=== PATIENT | male | born 1955 | race Asian ===

== ENCOUNTER 2019-01-21 01:51 | Emergency (ER) | payer BC ==
[~2019-01-21] VITALS: Ht 167.6 cm; Wt 70.3 kg
[2019-01-21] MEDS ORDERED: ROCURONIUM BROMIDE 10 MG/ML 5 ML VIAL IV ONE (01:53)
[2019-01-21] MEDS ORDERED: ETOMIDATE 2 MG/ML 10 ML VIAL IV ONE (01:53)
[2019-01-21] MEDS ORDERED: PROPOFOL 1000 MG/ISO-OSM 100 ML IV PRN (02:15)
[2019-01-21] MEDS ORDERED: MIRT7.5T11 PO (02:23)
[2019-01-21] MEDS ORDERED: METH20CP PO (02:23)
[2019-01-21] MEDS ORDERED: DOCU100C33 PO (02:23)
[2019-01-21] MEDS ORDERED: COMBISP IH (02:24)
[2019-01-21 02:27] LABS: BASOPHILS % (AUTO) 1.2 % (0.0-2.0); EOSINOPHILS % (AUTO) 1.9 % (1.0-6.0); HEMATOCRIT 44.1 % (41-53); LYMPHOCYTES # (AUTO) 6.5 K/uL (1.0-4.8); MEAN CORPUSCULAR HEMOGLOBIN 27.4 pg (26.0-34.0); MEAN CORPUSCULAR HGB CONC 31.8 G/dL (31.0-37.0); MEAN CORPUSCULAR VOLUME 86 fL (80-100); MONOCYTES # (AUTO) 1.3 K/uL (0.1-1.0); NEUTROPHILS # (AUTO) 5.7 K/uL (1.8-7.7); NEUTROPHILS % (AUTO) 40.9 % (40.0-70.0); PLATELET COUNT (AUTO) 179 K/uL (150-450); RED BLOOD CELL COUNT(AUTO) 5.13 MIL/uL (4.50-5.90); RED CELL DISTRIBUTION WIDTH 15.6 % (11.5-14.5)
[2019-01-21 02:36] LABS: ANION GAP 6 mmol/L (8-16); CALCIUM, TOTAL 9.4 mg/dL (8.8-10.5); CARBON DIOXIDE 29 mmol/L (22-29); CHLORIDE 100 mmol/L (98-107); CREATININE 0.83 mg/dL (0.60-1.30); GLOMERULAR FILTR. RATE CALC > 60 mL/min (>60); GLUCOSE,RANDOM 191 mg/dL (70-110); POTASSIUM 3.7 mmol/L (3.5-5.1); SODIUM SERUM 135 mmol/L (136-145); UREA NITROGEN, BLOOD 20 mg/dL (7-18)
[2019-01-21 02:39] LABS: INR 1.1 (0.9-1.1); PROTHROMBIN TIME 11.6 SEC (9.4-11.6)
[2019-01-21 02:43] LABS: ALANINE AMINOTRANSFERASE 29 U/L (12-78); ALKALINE PHOSPHATASE 392 U/L (46-116); ASPARTATE AMINOTRANSFERASE 70 U/L (15-37); CREATINE KINASE, TOTAL ONLY 57 U/L (39-308); TOTAL PROTEIN, SERUM 8.3 g/dL (6.4-8.2)
[2019-01-21 02:48] LABS: B-TYPE NATRIURETIC PEPTIDE 41 pg/mL (0-100)
[2019-01-21 02:49] LABS: ABG A-A DIFF O2 558.2 mmHg (10-20.0); ABG BASE EXCESS -0.2 mmol/L (-2.0-3.0); ABG CARBOXYHEMOGLOBIN 1.3 % (0.0-1.5); ABG HCO3 22.9 mmol/L (22.0-26.0); ABG METHEMOGLOBIN 0.4 % (0.0-1.5); ABG OXYGEN CONTENT 18.3 mL/dL (15.0-23.0); ABG OXYGEN SATURATION 95.6 % (95.0-98.0); ABG PH 7.227 (7.35-7.450); ABG TOTAL HEMOGLOBIN 13.8 G/dL (12.0-18.0); PO2, ARTERIAL BG 89.5 mmHg (79.0-87.0); SOURCE, BLOOD GAS ARTERIAL; TEMPERATURE, FAHRENHEIT, BG 97.4 FAHREN (96.0-98.6)
[2019-01-21 02:50] LABS: ABG PCO2 67 mmHg (35-45); O2 DEVICE,BLOOD GAS VENTILATOR (ROOM AIR); PEEP,BG 5 cm H2O; SITE, BLOOD GAS RT RADIAL; VT, ABG 500 ml
[2019-01-21 03:02] LABS: LACTIC ACID 2.2 mmol/L (0.4-2.0)
[2019-01-21] MEDS ORDERED: SODIUM CHLORIDE 0.9% 1,000 ML IV ONE (04:15)
[2019-01-21] MEDS ORDERED: SODIUM CHLORIDE 0.9% 2,100 ML IV ONE (04:15)
[2019-01-21 04:27] LABS: ABG A-A DIFF O2 523.1 mmHg (10-20.0); ABG BASE EXCESS 1.1 mmol/L (-2.0-3.0); ABG CARBOXYHEMOGLOBIN 1.2 % (0.0-1.5); ABG HCO3 23.7 mmol/L (22.0-26.0); ABG METHEMOGLOBIN 0.5 % (0.0-1.5); ABG OXYGEN CONTENT 19.2 mL/dL (15.0-23.0); ABG OXYGEN SATURATION 97.7 % (95.0-98.0); ABG TOTAL HEMOGLOBIN 14.1 G/dL (12.0-18.0); PO2, ARTERIAL BG 114.2 mmHg (79.0-87.0); SOURCE, BLOOD GAS ARTERIAL; TEMPERATURE, FAHRENHEIT, BG 98.5 FAHREN (96.0-98.6)
[2019-01-21 04:28] LABS: ABG PCO2 76 mmHg (35-45); ABG PH 7.201 (7.35-7.450); O2 DEVICE,BLOOD GAS VENTILATOR (ROOM AIR); PEEP,BG 5 cm H2O; SITE, BLOOD GAS RT RADIAL; VT, ABG 500 ml
[2019-01-21] MEDS ORDERED: MethylPREDNISolone SOD SUCC 125 MG/2 ML VIAL IVP ONE (05:00)
[2019-01-21] MEDS ORDERED: CefTRIAXone 1 GM/DEXTROSE 50 ML IV ONE (05:00)
[2019-01-21] MEDS ORDERED: AZITHROMYCIN 500 MG/NS 250 ML IV ONE (05:00)
[2019-01-21 06:17] LABS: ABG BASE EXCESS -3.1 mmol/L (-2.0-3.0); ABG CARBOXYHEMOGLOBIN 0.9 % (0.0-1.5); ABG HCO3 21.5 mmol/L (22.0-26.0); ABG METHEMOGLOBIN 0.5 % (0.0-1.5); ABG OXYGEN CONTENT 17.1 mL/dL (15.0-23.0); ABG OXYGEN SATURATION 99.3 % (95.0-98.0); ABG OXYHEMOGLOBIN 97.9 % (94.0-100.0); ABG PCO2 53 mmHg (35-45); ABG PH 7.269 (7.35-7.450); O2 DEVICE,BLOOD GAS VENTILATOR (ROOM AIR); PEEP,BG 5 cm H2O; PO2, ARTERIAL BG 242.4 mmHg (79.0-87.0); SITE, BLOOD GAS RT RADIAL; SOURCE, BLOOD GAS ARTERIAL; SPONTANEOUS VT, BG 551 ml; TEMPERATURE, FAHRENHEIT, BG 98.2 FAHREN (96.0-98.6); VT, ABG 550 ml
[2019-01-21 06:34] VITALS: BP 93/60
== END 2019-01-21 07:11 | disposition short-term general hospital (02) ==
LOC: EMS 01:52
DX: A41.9 Sepsis, unspecified organism (principal); J96.01 Acute respiratory failure with hypoxia; E87.2 Acidosis; R04.2 Hemoptysis; D72.829 Elevated white blood cell count, unspecified; J44.9 Chronic obstructive pulmonary disease, unspecified
CPT/HCPCS: 31500; 36415; 36600; 71045; 80053; 82550; 82805; 83605; 83880; 84484; 85025; 85610; 85730; 87040; 93005; 96365; 96368; 99291; 99292; J0456; J0696; J2704; J2930; J3490 ×2; J7030; 94002

== ENCOUNTER 2019-03-26 03:51 | Emergency (ER) | payer BC, MEDICAID ==
[~2019-03-26] VITALS: Ht 175.3 cm; Wt 64.1 kg
[~2019-03-26 03:51] MED LIST: COMBISP IH; DOCU100C33 PO; METH20CP PO; MIRT7.5T11 PO
[2019-03-26] MEDS ORDERED: ACET500C4 PO (04:05)
[2019-03-26] MEDS ORDERED: LORA0.5T83 PO (04:05)
[2019-03-26] MEDS ORDERED: [UNRECOGNIZED DRUG - CODE] PO (04:05)
[2019-03-26] MEDS ORDERED: TRAZ-184 PO (04:05)
[2019-03-26] MEDS ORDERED: PROC5TAB12 PO (04:05)
[2019-03-26] MEDS ORDERED: HYOS-28 PO (04:05)
[2019-03-26] MEDS ORDERED: HALO0.5T PO (04:05)
[2019-03-26] MEDS ORDERED: SODIUM CHLORIDE 0.9% 1,900 ML IV ONE (04:15)
[2019-03-26] MEDS ORDERED: AZITHROMYCIN 500 MG/NS 250 ML IV ONE (04:15)
[2019-03-26] MEDS ORDERED: VANCOMYCIN HCL 1 GM/D5% WATER 200 ML IV ONE (04:15)
[2019-03-26] MEDS ORDERED: 0.9% SODIUM CHLORIDE 10 ML SYRINGE IVP PRN (04:15)
[2019-03-26] MEDS ORDERED: PIPERACILLIN/TAZO 3.375 GM/D5W 50 ML IV ONE (04:15)
[2019-03-26 04:30] LABS: BASOPHILS % (AUTO) 0.6 % (0.0-2.0); EOSINOPHILS % (AUTO) 0 % (1.0-6.0); HEMATOCRIT 39.8 % (41-53); HEMOGLOBIN 13.2 g/dL (13.5-17.5); LYMPHOCYTES # (AUTO) 0.7 K/uL (1.0-4.8); LYMPHOCYTES % (AUTO) 7.3 % (22.0-44.0); MEAN CORPUSCULAR HEMOGLOBIN 26.7 pg (26.0-34.0); MEAN CORPUSCULAR HGB CONC 33.2 G/dL (31.0-37.0); MEAN CORPUSCULAR VOLUME 80 fL (80-100); MONOCYTES # (AUTO) 0.6 K/uL (0.1-1.0); MONOCYTES % (AUTO) 6.3 % (2.0-9.0); NEUTROPHILS # (AUTO) 8.5 K/uL (1.8-7.7); PLATELET COUNT (AUTO) 211 K/uL (150-450); RED BLOOD CELL COUNT(AUTO) 4.95 MIL/uL (4.50-5.90); RED CELL DISTRIBUTION WIDTH 15.8 % (11.5-14.5)
[2019-03-26 04:31] LABS: NEUTROPHILS % (AUTO) 85.8 % (40.0-70.0)
[2019-03-26 04:37] LABS: ANION GAP 7 mmol/L (8-16); CALCIUM, TOTAL 8.9 mg/dL (8.8-10.5); CARBON DIOXIDE 30 mmol/L (22-29); CHLORIDE 98 mmol/L (98-107); CREATININE 0.82 mg/dL (0.60-1.30); GLOMERULAR FILTR. RATE CALC > 60 mL/min (>60); GLUCOSE,RANDOM 141 mg/dL (70-110); POTASSIUM 4.2 mmol/L (3.5-5.1); SODIUM SERUM 135 mmol/L (136-145); UREA NITROGEN, BLOOD 10 mg/dL (7-18)
[2019-03-26 04:46] LABS: ALANINE AMINOTRANSFERASE 41 U/L (12-78); ALBUMIN 2.8 g/dL (3.4-5.0); ALKALINE PHOSPHATASE 355 U/L (46-116); ASPARTATE AMINOTRANSFERASE 147 U/L (15-37); BILIRUBIN,TOTAL 0.8 mg/dL (0.1-1.0); TOTAL PROTEIN, SERUM 8.1 g/dL (6.4-8.2)
[2019-03-26 04:51] LABS: SALICYLATE < 2.8 mg/dL (2.8-20.0)
[2019-03-26 04:53] LABS: INR 1.1 (0.9-1.1); PROTHROMBIN TIME 11.1 SEC (9.4-11.6)
[2019-03-26 05:03] LABS: ACETAMINOPHEN < 2 mcg/mL (10-30)
[2019-03-26 05:13] LABS: LACTATE DEHYDROGENASE 375 U/L (85-227)
[2019-03-26] MEDS ORDERED: MORPHINE SULFATE 4 MG/ML SYRINGE IVP ONE (05:15)
[2019-03-26] MEDS ORDERED: ACETAMINOPHEN 650 MG/ISO-OSM 65 ML IV ONE (05:30)
[2019-03-26 06:58] LABS: LACTIC ACID 2.7 mmol/L (0.4-2.0)
[2019-03-26 08:04] VITALS: BP 114/72
== END 2019-03-26 08:31 | disposition short-term general hospital (02) ==
LOC: EMS 03:54
DX: C79.89 Secondary malignant neoplasm of other specified sites (principal); R41.82 Altered mental status, unspecified; J44.9 Chronic obstructive pulmonary disease, unspecified; K21.9 Gastro-esophageal reflux disease without esophagitis; Z79.899 Other long term (current) drug therapy
CPT/HCPCS: 36415; 71045; 80053; 83605; 83615; 85025; 85610; 86850; 86900; 86901; 87040; 93005; 96365; 96375; 99285; G0480; J0131; J2270; G0481; J0456; J2543; J3370